=== PATIENT | female | born 1975 ===

== ENCOUNTER → 2021-01-14 08:32 | Outpatient (BNVA) | payer BC, SELFPAY | PROVIDERS: PCP Pediatrics; Referring Provider Pediatrics; Visit Provider Physician Assistant ==

== ENCOUNTER → 2021-01-17 07:33 | Outpatient (BNVA) | payer BC, SELFPAY | PROVIDERS: PCP Pediatrics; Visit Provider Surgery ==

== ENCOUNTER → 2021-01-21 14:54 | Outpatient (BNVA) | payer BC, SELFPAY | PROVIDERS: PCP Pediatrics; Visit Provider Surgery ==

== ENCOUNTER → 2021-02-03 08:06 | Outpatient (BNVA) | payer BC, SELFPAY | PROVIDERS: PCP Pediatrics; Visit Provider Physician Assistant ==

== ENCOUNTER 2021-02-03 08:46 | Outpatient (REF) | payer BC, SELFPAY ==
--- NOTE | ~2021-02-03 | XR_ITS ---
EXAMINATION: XR CHEST CLINICAL INFORMATION: Obesity. COMPARISON: None TECHNIQUE: 2 views of the chest were obtained. FINDINGS: The lungs are clear. The cardiomediastinal silhouette is normal in size. There is no pleural effusion or pneumothorax. No acute osseous abnormality. XR/XR chest 2V IMPRESSION: No acute cardiopulmonary findings.
--- NOTE | 2021-02-03 08:56 | ECG_ITS ---
Test Reason : obesity Blood Pressure : / mmHG Vent. Rate : 074 BPM Atrial Rate : 074 BPM P-R Int : 120 ms QRS Dur : 070 ms QT Int : 394 ms P-R-T Axes : 011 039 008 degrees QTc Int : 437 ms Normal sinus rhythm Low voltage QRS Borderline ECG No previous ECGs available Referred By: Brent Gutierrez Electronically Signed By:TONYA FRAUSTO
[2021-02-03 09:22] LABS: MANUAL DIFF FLAG NO
[2021-02-03 09:26] LABS: Basophils Percent Auto 0.9 % (0-2); Eosinophils Absolute Auto 0.1 X10*3/uL (0.0-0.4); Eosinophils Percent Auto 1.5 % (0-4); Hematocrit 41.3 % (37-47); Hemoglobin 13.3 g/dl (12.0-16.0); Imm Gran Abs Auto 0.01 X10*3/uL (0.00-0.03); Imm Gran Pct Auto 0.2 % (0.0-0.4); Lymphocytes Absolute Auto 1.3 X10*3/uL (1.2-4.9); Lymphocytes Percent Auto 28.4 % (20-40); Mean Corpuscular HGB Conc 32.2 g/dl (31.0-35.0); Mean Corpuscular Hemoglobin 27.2 pg (27.0-33.0); Mean Corpuscular Volume 84.5 fL (80-98); Mean Platelet Volume 9.3 fL (9.4-12.3); Monocytes Absolute Auto 0.4 X10*3/uL (0.1-1.2); Monocytes Percent Auto 8.6 % (2-11); Neutrophils Absolute Auto 2.8 X10*3/uL (2.0-8.3); Neutrophils Percent Auto 60.4 % (45-73); Platelet Count 301 X10*3/uL (160-400); Red Blood Count 4.89 X10*6/uL (4.20-5.50); Red Cell Distribution Width 12.2 % (11.0-16.0); White Blood Count 4.7 X10*3/uL (4.8-10.8)
[2021-02-03 10:02] LABS: Alanine Aminotransferase 17 U/L (0-31); Albumin Level 4.3 g/dL (3.5-5.0); Alkaline Phosphatase 49 U/L (39-117); Anion Gap 14 (12-20); Aspartate Amino Transferase 20 U/L (5-31); Bilirubin Total 0.3 mg/dL (0.0-1.0); Blood Urea Nitrogen 15 mg/dL (9-16); C Reactive Protein 0.61 mg/dL (< or = 0.50); Carbon Dioxide 23 mmol/L (22-29); Chloride 107 mmol/L (96-108); Cholesterol 179 mg/dL; Estimated Glomerular Filt Rate > 60; Glucose Random 96 mg/dL (60-115); HDL Cholesterol 53 mg/dL; Iron 85 mcg/dL (30-160); LDL Cholesterol Calculated 109 mg/dl; Percent Iron Saturation 34 % (15-50); Sodium 140 mmol/L (135-145); Total Iron Binding Capacity 251 mcg/dL (228-428); Total Protein 6.8 g/dL (6.5-8.0); Triglycerides 88 mg/dL; Unsaturated Iron Binding 166 ug/dL
[2021-02-03 10:32] LABS: Ferritin 78 ng/mL (10-250); TSH reflex Free T4 0.92 uIU/mL (0.32-4.0); Vitamin D 25-OH Total 25.8 ng/mL (>30)
[2021-02-03 11:01] LABS: Estimated Average Glucose 111 mg/dL; Hemoglobin A1c % 5.5 %
[2021-02-03 11:43] LABS: Folate 15.9 ng/mL (> or = 4.0); Vitamin B12 741 pg/mL (200-900)
[2021-02-04 11:53] LABS: H Pylori Breath Test Negative (Negative)
[2021-02-04 18:17] LABS: Insulin Level Total 4.3 uIU/mL
[2021-02-04 18:27] LABS: Calcium (PTHI) 9.3 mg/dL (8.6-10.2); PTHI 85 pg/mL (14-64)
[2021-02-06 06:28] LABS: Zinc 89 mcg/dL (60-130)
[2021-02-07 12:16] LABS: Vitamin B1 11 nmol/L (8-30)
[2021-02-09 00:26] LABS: Vitamin A 42 mcg/dL (38-98)
== END 2021-02-03 08:47 | disposition home or self-care (01) ==
LOC: HO.LAB 08:46
PROVIDERS: PCP Pediatrics; Visit Provider Surgery
DX: E66.01 Morbid (severe) obesity due to excess calories (principal)
CPT/HCPCS: 36415; 71046; 80053; 80061; 82306; 82607; 82728; 82746; 83013; 83036; 83525; 83540; 83970; 84425; 84443; 84590; 84630; 85025; 86140; 93005

== ENCOUNTER → 2021-02-14 09:02 | Outpatient (BNVA) | payer BC, SELFPAY | PROVIDERS: PCP Pediatrics; Visit Provider Surgery ==

== ENCOUNTER 2021-02-19 08:06 | Outpatient (REF) | payer BC, OTHER, SELFPAY ==
--- NOTE | ~2021-02-19 | US_ITS ---
EXAMINATION: US COMPLETE ABDOMEN WITH LIVER ELASTOGRAPHY CLINICAL INFORMATION: Obesity COMPARISON: None. TECHNIQUE: Real-time imaging of the abdominal viscera. Noninvasive ultrasound liver fibrosis assessment is performed using Valdemar ElastPQ point quantification shear wave elastography (pSWE) with a C5-2 MHz transducer. Multiple elastography samples are obtained. FINDINGS: PANCREAS: Normal. ABDOMINAL AORTA: The proximal, middle, and distal aortic segments are normal in caliber. INFERIOR VENA CAVA: Visualized portions are normal. LIVER: Normal. The liver demonstrates normal size, contour and echogenicity. No focal lesion or intrahepatic biliary duct dilatation. The right lobe measures 15 cm in length. The left lobe measures 9.5 cm in length. Portal flow is normal/hepatopedal Shear wave liver elastography median stiffness is 1.44 m/s (reference: normal median stiffness is 1.3 m/s or less). IQR/median stiffness to assess sampling precision is 0.23 (reference: good quality data set is IQR/median stiffness of 0.15 or less). GALLBLADDER: Normal. The gallbladder is physiologically distended without evidence of stones, sludge, polyps, wall thickening or pericholecystic fluid. COMMON BILE DUCT: Normal in caliber measuring 0.3 cm in diameter. RIGHT KIDNEY: Normal. No hydronephrosis. No renal calculi or focal parenchymal lesions. The kidney measures 10.6 cm in maximum dimension. LEFT KIDNEY: Normal. No hydronephrosis. No renal calculi or focal parenchymal lesions. The kidney measures 10.5 cm in maximum dimension. SPLEEN: Normal. The spleen measures 9.1 cm in maximum dimension. FREE FLUID: None. US/US abdomen comp w elastography IMPRESSION: 1. Impression: Normal abdominal ultrasound. 2. Liver elastography: Slightly limited due to sampling error. In the absence of other known clinical signs, rules out compensated advanced chronic liver disease. REFERENCE: Society of Radiologists in Ultrasound Liver Stiffness Thresholds (2020): LIVER STIFFNESS THRESHOLDS: *Liver Stiffness equal or less than 1.3 m/s: High probability of being normal. *Liver Stiffness less than 1.7 m/s: In the absence of other known clinical signs, rules out compensated advanced chronic liver disease. *Liver Stiffness 1.7-2.1 m/s: Suggestive of compensated advanced chronic liver disease but need further test for confirmation. *Liver Stiffness over 2.1 m/s: Rules in compensated advanced chronic liver disease. *Liver Stiffness over 2.4 m/s: Suggestive of clinically significant portal hypertension. QUALITY OF DATA SET: *IQR/Median value equal or less than 0.15 implies a quality data set. *IQR/Median value over 0.15 implies a poor quality data set. SIGNIFICANT CHANGE FROM PRIOR EXAM: Significant change if liver stiffness measurement is 10% or greater from prior exam. OTHER CONSIDERATIONS: The stage of liver fibrosis may be overestimated in the setting of acute hepatitis, liver inflammation, elevated liver function tests, hepatic vascular congestion, obstructive cholestasis, non-fasting state, and infiltrative diseases such as amyloidosis and lymphoma. In some patients with NAFLD, the liver stiffness thresholds for compensated advanced chronic liver disease may be lower. In causes other than viral hepatitis and NAFLD, liver stiffness thresholds are not well established.
== END 2021-02-19 08:07 | disposition home or self-care (01) ==
LOC: HO.US 08:06
PROVIDERS: PCP Pediatrics; Visit Provider Surgery
DX: Z01.818 Encounter for other preprocedural examination (principal); E66.9 Obesity, unspecified; K21.9 Gastro-esophageal reflux disease without esophagitis
CPT/HCPCS: 76705; 76981

== ENCOUNTER → 2021-02-20 08:03 | Outpatient (BNVA) | payer BC, SELFPAY | PROVIDERS: PCP Pediatrics; Visit Provider Dietitian, Registered | DX: E66.01 Morbid (severe) obesity due to excess calories (principal); Z68.39 Body mass index [BMI] 39.0-39.9, adult | CPT/HCPCS: 97802 ==

== ENCOUNTER → 2021-03-14 08:15 | Outpatient (BNVA) | payer BC, SELFPAY | PROVIDERS: PCP Pediatrics; Visit Provider Surgery ==

== ENCOUNTER → 2021-04-04 08:10 | Outpatient (BNVA) | payer BC, SELFPAY | PROVIDERS: PCP Pediatrics; Visit Provider Surgery ==

== ENCOUNTER 2021-04-17 10:55 | Outpatient (REF) | payer BC, SELFPAY ==
--- NOTE | ~2021-04-17 | FL_ITS ---
EXAMINATION: FL UPPER GI AIR-CONTRAST STUDY CLINICAL INFORMATION: Morbid/severe obesity due to excess calories. COMPARISON: None TECHNIQUE: Routine upper GI air-contrast study was performed. FINDINGS: Following oral administration of thick barium and effervescent granules, there is normal propagation of bolus from the oral cavity through the pharynx, esophagus into the stomach without any evidence of obstruction, narrowing or stricture. On placing patient supine and prone, the course, caliber and peristalsis of the stomach, duodenal bulb and the sweep are normal. The mucosal pattern of the stomach and the duodenum is normal. There is no gastroesophageal reflux or hiatal hernia. FLUOROSCOPY TIME: 1.3 minutes DOSE AREA PRODUCT: 23.224 uGy-m2 (microgray-meter squared) FL/FL upper GI series IMPRESSION: Unremarkable upper GI air-contrast study.
== END 2021-04-17 10:56 | disposition home or self-care (01) ==
LOC: HO.XRAY 10:55
PROVIDERS: PCP Pediatrics; Visit Provider Surgery
DX: E66.01 Morbid (severe) obesity due to excess calories (principal)
CPT/HCPCS: 74240

== ENCOUNTER → 2021-04-18 07:11 | Outpatient (BNVA) | payer BC, SELFPAY | PROVIDERS: PCP Pediatrics; Visit Provider Surgery ==

== ENCOUNTER 2021-04-24 16:16 | Inpatient (IN) | payer BC, SELFPAY ==
[2021-04-16 14:55] VITALS: BMI 37.3
[2021-04-18 09:38] LABS: MANUAL DIFF FLAG NO
[2021-04-18 09:59] LABS: Basophils Percent Auto 0.5 % (0-2); Eosinophils Percent Auto 0.7 % (0-4); Hematocrit 42.8 % (37.0-47.0); Hemoglobin 13.3 g/dl (12.0-16.0); Imm Gran Abs Auto 0.01 X10*3/uL (0.00-0.03); Imm Gran Pct Auto 0.2 % (0.0-0.4); Lymphocytes Absolute Auto 1.5 X10*3/uL (1.2-4.9); Lymphocytes Percent Auto 25.1 % (20-40); Mean Corpuscular HGB Conc 31.1 g/dl (31.0-35.0); Mean Corpuscular Hemoglobin 27.1 pg (27.0-33.0); Mean Corpuscular Volume 87.3 fL (80.0-98.0); Mean Platelet Volume 9.1 fL (9.4-12.3); Monocytes Absolute Auto 0.6 X10*3/uL (0.1-1.2); Monocytes Percent Auto 10.1 % (2-11); Neutrophils Absolute Auto 3.7 x10*3/uL (2.0-8.3); Neutrophils Percent Auto 63.4 % (45-73); Platelet Count 291 X10*3/uL (160-400); Red Cell Distribution Width 12.6 % (11.0-16.0); White Blood Count 5.8 X10*3/uL (4.8-10.8)
[2021-04-18 10:05] LABS: Prothrombin Time 10.9 SEC (9.9-13.0)
[2021-04-18 10:07] LABS: Partial Thromboplastin Time 35.1 SEC (24.1-38.0)
[2021-04-18 10:10] LABS: Estimated Average Glucose 111 mg/dL; Hemoglobin A1C 127.4394 umol/L; Hemoglobin A1c % 5.5 %
[2021-04-18 10:31] LABS: Alanine Aminotransferase 12 U/L (0-31); Albumin Level 4.3 g/dL (3.5-5.0); Alkaline Phosphatase 50 U/L (39-117); Anion Gap 11 (12-20); Aspartate Amino Transferase 16 U/L (5-31); Bilirubin Total 0.3 mg/dL (0.0-1.0); Blood Urea Nitrogen 11 mg/dL (9-16); C Reactive Protein 0.24 mg/dL (< or = 0.50); Calcium 9.2 mg/dL (8.4-10.2); Carbon Dioxide 28 mmol/L (22-29); Chloride 109 mmol/L (96-108); Cholesterol 202 mg/dL; Creatinine Clr Calc Pharmacy 119.8; Estimated Glomerular Filt Rate > 60; Glucose Random 105 mg/dL (60-115); HDL Cholesterol 49 mg/dL; LDL Cholesterol Calculated 141 mg/dl; Potassium 4.8 mmol/L (3.3-5.1); Sodium 143 mmol/L (135-145); Total Protein 6.9 g/dL (6.5-8.0); Triglycerides 61 mg/dL
[2021-04-18 10:56] LABS: TSH reflex Free T4 1.27 uIU/mL (0.32-4.0)
[2021-04-18 11:16] LABS: Insulin 8 uU/mL (2-29)
--- NOTE | 2021-04-19 19:14 | MHC.SHP ---
Pre-Procedural Eval Section A Date of Service: 04/19/21 The patient is an INPATIENT: Yes The History & Physical has been completed within 30 days and I have reviewed it.: No Section B Chief Complaint: Obesity Relevant Family History (Specify if Yes): Yes Relevant Social History: None Present Medications: None Medical History: No relevant PMH History of Previous Operations: No relevant previous surgery Allergies: Allergies Allergy/AdvReac Type Severity Reaction Status Date / Time No Known Allergies Allergy Verified 04/18/21 07:45 Review of Systems Sugical H&P ROS: Negative: Constitution, Cardiovascular, Respiratory, Neurological, Psychiatric, Hem-Onc, Allergic/Immunologic, Gastrointestinal, Genitourinary, Musculoskeletal, Integumentary, Endocrine and Eyes/Ears/Nose/Throat Exam Surgical H&P Exam: Normal: HEENT, Normal: Heart, Normal: Lungs, Normal: Extremities, Normal: Abdomen, Normal: Skin and Normal: Neurological Plan Diagnosis/Plan: Unchanged I have reviewed the history and physical and performed a pertinent physical examination on my patient. No changes have occurred unless specified.
--- NOTE | 2021-04-23 09:35 | P.CONAN_ITS ---
Documented by User: Marialuisa Johnson NP 04/23/21 09:52 HPI - Anesthesia Eval Consult details Narrative: 45yo F for Gastrectomy Sleeve, EGD, Poss Diaphragmatic Hernia, Poss Ventral Hernia, Poss open PMFSH Active Problems Active Problems: All Active Problems (Updated 04/16/21 @ 14:54 by Paty Henriquez RN) Adjustment disorder, unspecified (Acute) Vitamin D deficiency (Acute) Obesity (Acute) BMI 38.0-38.9,adult (Acute) BMI 37.0-37.9, adult (Acute) Back pain (Acute) Morbid obesity (Acute) Past Medical History Medical History Back pain Morbid obesity Family History Family History (Updated 01/16/21 @ 14:25 by SHAHRIAR Neal) Mother Lung cancer Father No problems noted. Daughter No problems noted. Daughter No problems noted. Surgical History Surgical History History of tonsillectomy Social History Social History (Updated 01/16/21 @ 14:26 by SHAHRIAR Neal) Are you a primary ocular care technologist to a significant other at home: No Do you presently have visiting nurse or other home services: No Alcohol intake: current Alcohol intake frequency: a few times a week Patient Tobacco Use Status: Former Tobacco user Meds Allergies Allergy/AdvReac Type Severity Reaction Status Date / Time No Known Allergies Allergy Verified 04/24/21 11:40 Exam Exam Date and Time: April 23, 2021 0935 Height,Weight and Vital Signs: Height 5 ft 9 in Weight 114.759 kg Pertinent Lab Results Pertinent Lab Results: Laboratory Tests 04/18/21 04/18/21 04/18/21 09:35 09:35 09:35 WBC 5.8 RBC 4.90 Hgb 13.3 Hct 42.8 MCV 87.3 MCH 27.1 MCHC 31.1 RDW 12.6 Plt Count 291 MPV 9.1 L Immature Gran % (Auto) 0.2 Neut % (Auto) 63.4 Lymph % (Auto) 25.1 [place] % (Auto) 10.1 Eos % (Auto) 0.7 Baso % (Auto) 0.5 Lymph # (Auto) 1.5 [place] # (Auto) 0.6 Eos # (Auto) 0.0 Baso # (Auto) 0.0 Abs Immat Gran (auto) 0.01 Absolute Neuts (auto) 3.7 Absolute Nucleated RBC 0.000 Nucleated RBC % (auto) 0.0 PT 10.9 INR 1.0 APTT 35.1 Sodium 143 Potassium 4.8 Chloride 109 H Carbon Dioxide 28 Anion Gap 11 L BUN 11 Creatinine 0.81 Estim Creat Clear Calc 119.8 Estimated GFR > 60 Random Glucose 105 Estimat Average Glucose Hemoglobin A1c % Insulin Level 8 Calcium 9.2 Total Bilirubin 0.3 AST 16 ALT 12 Alkaline Phosphatase 50 C-Reactive Protein 0.24 Total Protein 6.9 Albumin 4.3 Triglycerides 61 Cholesterol 202 LDL Cholesterol, Calc 141 HDL Cholesterol 49 TSH 1.27 Blood Type Antibody Screen 04/18/21 04/18/21 09:35 09:35 WBC RBC Hgb Hct MCV MCH MCHC RDW Plt Count MPV Immature Gran % (Auto) Neut % (Auto) Lymph % (Auto) [place] % (Auto) Eos % (Auto) Baso % (Auto) Lymph # (Auto) [place] # (Auto) Eos # (Auto) Baso # (Auto) Abs Immat Gran (auto) Absolute Neuts (auto) Absolute Nucleated RBC Nucleated RBC % (auto) PT INR APTT Sodium Potassium Chloride Carbon Dioxide Anion Gap BUN Creatinine Estim Creat Clear Calc Estimated GFR Random Glucose Estimat Average Glucose 111 Hemoglobin A1c % 5.5 Insulin Level Calcium Total Bilirubin AST ALT Alkaline Phosphatase C-Reactive Protein Total Protein Albumin Triglycerides Cholesterol LDL Cholesterol, Calc HDL Cholesterol TSH Blood Type O Positive Antibody Screen NEGATIVE Narrative Narrative: EKG 01/2021 Vent. Rate : 074 BPM ? ? Atrial Rate : 074 BPM ?? P-R Int : 120 ms? QRS Dur : 070 ms ? ? QT Int : 394 ms ? ? ? P-R-T Axes : 011 039 008 degrees ?? QTc Int : 437 ms ? Normal sinus rhythm Low voltage QRS Borderline ECG No previous ECGs available Assessment and Plan Assessment Anesthesia Assessment: Chart Reviewed Documented by User: Abner Saha 04/24/21 12:38 PMFSH Past Medical History Medical History Back pain Morbid obesity Functional capacity: independent ambulation Family History Family History (Updated 01/16/21 @ 14:25 by SHAHRIAR Neal) Mother Lung cancer Father No problems noted. Daughter No problems noted. Daughter No problems noted. Family history of problems with anesthesia: No Surgical History Surgical History History of tonsillectomy History of Problems with Anesthesia: No Social History Social History (Updated 01/16/21 @ 14:26 by SHAHRIAR Neal) Are you a primary ocular care technologist to a significant other at home: No Do you presently have visiting nurse or other home services: No Alcohol intake: current Alcohol intake frequency: a few times a week Patient Tobacco Use Status: Former Tobacco user Meds Allergies Allergy/AdvReac Type Severity Reaction Status Date / Time No Known Allergies Allergy Verified 04/24/21 11:40 Exam Airway Mallampati Class: II TM Dist: >3cm Neck ROM: Full Loose/Missing/Broken Teeth: No Heart: rrr Lungs: bl breath sounds Assessment and Plan Final Anesthetic Review Family History of Problems with Anesthesia: No History of Problems with Anesthesia: No NPO: Yes ASA Class: III Final Preanesthetic Review: Meds/Allgs Chart Reviewed Patient Risk: Intermediate Procedure Risk: Intermediate Anesthetic Plan Anesthetic Plan: GA Disposition: Standard PACU
[2021-04-24] VITALS (9 sets, daily range): BP systolic 102–139; BP diastolic 61–90; PULSE 61–95; RESP 12–18; TEMP 36.3–37; O2SAT 96–100
[2021-04-24 12:01] LABS: UPreg QC Valid YES; Urine Pregnancy NEGATIVE (NEGATIVE)
[2021-04-24 12:11] LABS: COVID-19 Test Negative (Negative)
[2021-04-24] MEDS: Lactated Ringers 1,000 ML 100 ML IVCONT ×2 (12:19→17:03)
[2021-04-24] MEDS: Lactated Ringers 1,000 ML 999 ML IV (12:19)
--- NOTE | 2021-04-24 14:10 | PM.PNGS ---
Subjective Subjective Date of Service: 04/25/21 Interval history: Patient has mild incisional pain, but was able to ambulate and use the incentive spirometer. Had significant nausea and vomiting overnight. Physical Exam Vital Signs: Vital Signs: Last Vital Signs Temp 98.6 F 04/24/21 12:03 Pulse 90 04/24/21 12:03 Resp 16 04/24/21 12:03 BP 102/64 04/24/21 12:03 Pulse Ox 96 04/24/21 12:03 BMI result Body Mass Index 37.3 GI: Inspection: Yes normal to inspection, Yes incision (clean, dry and intact) and Yes obesity Extrem: Right lower extremity: normal to inspection (no calf tenderness) Left lower extremity: normal to inspection (no calf tenderness) Objective Data Active Medications Lactated Ringer's (Lr) 1,000 mls @ 100 mls/hr IVCONT .Q10H [facility] Last Admin: 04/24/21 12:19 Dose: 100 mls/hr Documented by: QUIN Labs CBC & Chem 7: 04/25/21 05:24 04/25/21 06:52 Labs: Laboratory Results - last 24 hr 04/24/21 04/24/21 11:40 11:45 Urine Test NEGATIVE COVID-19 ([facility]) Negative COVID-19 Clin Com See Note Procedures Date of Service Date of Service: 04/25/21 Progress Note: A&P Assessment and plan (1) Liver fibrosis: Status: Acute (2) S/P laparoscopic sleeve gastrectomy: Status: Acute Assessment and Plan: 1. Continue NPO and IV fluids 2. Try IV Phenergan Fall Risk Details Current Medications: Current Medications Lactated Ringer's (Lr) 1,000 mls @ 100 mls/hr IVCONT .Q10H [facility] Last Admin: 04/24/21 12:19 Dose: 100 mls/hr Documented by: Time Spent With Patient Time: Total time spent is greater than 50% in coordination of care (as documented) at patient's floor/unit and/or counseling patient: Time with patient: less than 15 minutes Quality Stroke Does the patient have a stroke diagnosis?: No VTE Prior VTE?: No VTE Risk Level:: Surgical - moderate VTE Device Contraindication: N/A - Device Ordered VTE Drug Contraindication: Treatment Not Indicated
--- NOTE | 2021-04-24 14:12 | PM.OP ---
Brief Operative Note Date of Service: 04/24/21 Pre-op diagnosis: Severe obesity and comorbidities (see below) Post-op diagnosis: same Procedure: INITIAL PATIENT BMI ON PRESENTATION AT OUR OFFICE: 41.3 kg/m2 LAST BMI BEFORE SURGERY: 38.2 kg/m2 COMORBIDITIES: back pain, liver steatosis The patient participated in an intensive weekly lifestyle ?intervention and exercise program during which the patient ?has lost between the initial office visit and the last preoperative visit 29.6lbs, or 10.47% of initial actual body weight. The patient met the BMI-criteria for bariatric surgery based on the BMI on initial presentation. The patient should not be penalized for achieving such weight loss because ?it is not sustainable long-term without surgical intervention and it was achieved in preparation for bariatric surgery ?under my direction and based on my published research ([email or web address]) ?that a 10% preoperative weight loss improves long-term weight loss after surgery and reduces perioperative complications.? Insurance carriers such as [facility] have endorsed my recommendations ?and have included in their policies criteria to include a 10% preoperative weight loss requirement. PROCEDURE: Esophago-gastroscopy, laparoscopic repair of incarcerated diaphragmatic hernia, laparoscopic lysis of adhesions, laparoscopic sleeve gastrectomy and laparoscopic gastropexy INDICATIONS: This is a 45 year-old female who was electively scheduled for laparoscopic, possibly open sleeve gastrectomy. The risks and complications of the procedure were discussed with the patient in advance, particularly the possibility of ; pulmonary embolism; staple line leak; bleeding; GERD; cardiac, pulmonary, or renal complications; as well as long-term problems such as insufficient weight loss, vitamin deficiency, strictures, or ulcers. The patient understood all the risks, and was in agreement to proceed with surgery. DESCRIPTION OF PROCEDURE: After informed consent was obtained from the patient, the patient was given preoperative antibiotics, and was transferred to the operating room. After successful induction of general anesthesia, pneumatic compressive devices were placed on both lower extremities. An upper endoscopy was performed next. The oropharynx and esophagus appeared to be within normal limits. There was a diaphragmatic hernia present of moderate size consistent with the findings of the preoperative upper GI. The stomach was entered. Then after all fluid and air were suctioned and the stomach was fully decompressed, the scope was withdrawn and secured in the mid esophagus. The patient was then prepped and draped in the usual sterile manner, and abdominal access was established at the right upper quadrant with the Myrna technique. A 12 mm blunt port was inserted, and the abdomen was insufflated with CO2 to a pressure of 15 mmHg. Under direct visualization, additional ports were placed, specifically two 5 mm Versi-step ports to the left upper quadrant, and a 5 mm Versi-Step port to the right upper quadrant. 1% lidocaine plain was used to infiltrate all port sites as well as all fascia defects. Following that, the patient was placed in a steep reverse Trendelenburg position. An additional 5 mm port was placed to the right flank for the Mediflex retractor that was used to retract the left lobe of the liver. The gastro-esophageal fat pad was opened with the ultrasonic device (Thunderbeat, Olympus) and the anterior esophagus and hiatus were exposed. The angle of His was opened with the ultrasonic device the fundus of the stomach from any diaphragmatic and splenic attachments. I then opened the gastrocolic ligament between the transverse colon and the greater curvature of the stomach with the ultrasonic device to enter the lesser sac and facilitate the ligation of the short gastric vessels. I started at a mid-point along the greater curvature and using the Thunderbeat, all short gastric vessels were divided all the way to the angle of His until the left basia was completely dissected at its entirety. I then divided the gastro-colic ligament distally to a distance of about 3-4 cm proximal to the esophagus. The stomach was then divided transversely with one Endo HEMALATHA-45 purple, two HEMALATHA-45 orange and three HEMALATHA-60 articulating orange loads using the AEON stapler and loads. Every effort was made that the gastric sleeve had a tubular shape and an even caliber throughout. Once the sleeve resection was completed, the staple line of the gastric sleeve was reinforced with Hemoclips. The resected stomach was retrieved without difficulty from the Myrna port. A gastropexy was then performed in order to prevent postoperative GERD and partial gastric volvulus. Several interrupted 2.0 Surgidac sutures were placed between the sleeve's staple line and the previously divided greater omentum and gastro-colic ligament using the Endo-Stitch device. ?An upper endoscopy was performed. There was no narrowing at the GE junction. The scope was easily advanced all the way to the pylorus which was clearly visualized. There was no narrowing anywhere and the sleeve's caliber was even throughout. The sleeve's staple line was inspected and there was no evidence of ischemia, bleeding or dehiscence. At that point the gastroscope was withdrawn from the patient?s mouth while we were decompressing the bowel and the stomach from any remaining air. I looked into the lesser sac to see how the sleeve was situating and it was situating well. There was no bleeding from the staple line, spleen, or short gastric vessels. The Mediflex retractor was removed, and the undersurface of the liver was inspected and there was no bleeding. The patient was placed in supine position. I closed the fascial defect of the 12 mm port site with a figure of eight #1 Polysorb suture. Then 100 cc 0.25 % Marcaine plain with 10 mg of Dexamethasone were used to infiltrate the fascial closure as well as all skin incisions. At this point, the abdomen was deflated, all ports were removed under direct vision, and no bleeding was noted from any of the port sites. The skin incisions were irrigated with saline and were closed with 4-0 absorbable monofilament sutures. Steri-Strips and OpSites were used to cover all incisions. The patient was extubated and was transferred in stable condition to the recovery room for further care. I was present and performed all mejia parts of the procedure. Ms. Guptason was the judicial assistant. There were no residents to assist with this case. Gray Gutierrez MD, PhD, FACS Surgeon: Brent Gutierrez MD Anesthesia: GETA, local and other (TAP block) Was an Executive Secretary Social Welfare used for this Procedure?: No Executive Secretary Social Welfare: Arely Hanna Estimated blood loss (mL): 10 Urine output (mL): 0 (No Bernstein to record) Pathology: other (Stomach) Condition: stable Disposition: PACU
--- NOTE | 2021-04-24 16:19 | P.DS_ITS ---
DS: Providers Provider Date of Service: 04/25/21 Primary care physician: Stacie Tong MD DS: Diagnosis Discharge Diagnosis (1) Obesity: (2) BMI 38.0-38.9,adult: (3) Back pain: (4) Liver fibrosis: Status: Acute DS: Summary Hospital Course Hospital Course: ADMITTING DIAGNOSIS: morbid obesity DISCHARGE DIAGNOSIS: same, s/p laparoscopic sleeve gastrectomy PAST SURGICAL HISTORY: none PROCEDURE: upper endoscopy, laparoscopic sleeve gastrectomy DISCHARGE SUMMARY: History of Present Illness: The patient is a 45 year-old woman with a BMI of 41.3 kg/m2 and associated co- morbidities as described above. The patient had extensive work-up,lost 27.4 lbs preoperatively and was electively scheduled for laparoscopic, possible open sleeve gastrectomy and gastropexy. Risks and complications of the surgery were discussed with the patient in advance, particularly the possibility of , pulmonary embolism, anastomotic leak, bleeding, bowel injury, GERD, cardiac, renal or pulmonary complications. The patient understood all the risks and was in agreement with the surgical plan. Hospital Course: The patient underwent an uneventful laparoscopic sleeve gastrectomy with gastropexy on the day of admission. Postoperatively, the patient was transferred to the surgical floor. The patient received IV Acetaminophen and IV dilaudid for pain control. Patient was started on bariatric phase 1 diet POD #0. On postoperative day one, the patient was feeling well without nausea, vomiting, fevers, or tachycardia. The patient had some mild incisional pain and the abdomen was soft. On the morning of postoperative day one, the patient was continued on 1 ounce of water or ice every half hour. During the day, the patient did fairly well, having some incisional pain, but able to ambulate adequately and to tolerate liquids well. Since the patient is doing well, we decided that the patient was ready to be discharged. The patient was given instructions to follow-up with me next week and to call my office for any fever over 101, persistent abdominal pain, nausea, vomiting, GERD, symptoms of DVT such as calf tenderness, or leg swelling, or pulmonary embolism such as chest pain or shortness of breath. The patient was also instructed to drink 40-60 ounces of liquids per day using the 1-ounce cups. The patient had been given prescriptions for Tylenol for pain, Zofran prn for nausea, and pantoprazole and carafate previously. The patient was encouraged to ambulate and use the incentive spirometer. The patient was allowed to shower, but no baths, and encouraged to stay active at home. All of these instructions were given to the patient personally. All questions were answered and the patient understood all instructions, the instructions were also given to the patient in print. Time Spent with Patient Time attestation: Total time spent providing and/or coordinating discharge services: Discharge coordination time: Less than 30 minutes Quality: Stroke Does the patient have a stroke diagnosis?: No Physical Exam Vital Signs: Vital Signs: Last Vital Signs Temp 98.6 F 04/24/21 12:03 Pulse 90 04/24/21 12:03 Resp 16 04/24/21 12:03 BP 102/64 04/24/21 12:03 Pulse Ox 96 04/24/21 12:03 BMI result Body Mass Index 37.3 DS: Data Data Completed and Pending Labs on day of discharge: Laboratory Results - last 24 hr 04/24/21 04/24/21 11:40 11:45 Urine Test NEGATIVE COVID-19 ([facility]IA) Negative COVID-19 Clin Com See Note Discharge Plan Discharge Patient Disposition: Home, Self-Care Discharge Diagnosis: s/p sleeve gastrectomy Referrals: Stacie Tong MD [Primary Care Provider] - 1 Week Discharge Medications: Continued pantoprazole 40 mg tablet,delayed release (DR/EC) 40 mg PO DAILY Qty: 30 RF: 2 ondansetron HCl [Zofran] 4 mg tablet 4 mg PO Q12H Qty: 20 RF: 0 sucralfate 1 gram tablet 1 g PO BID Qty: 60 RF: 2 Discontinued cholecalciferol (vitamin D3) 125 mcg (5,000 unit) capsule 125 mcg PO DAILY Qty: 30 RF: 2 polyethylene glycol 3350 [Miralax] 17 gram powder in packet 17 g PO DAILY Qty: 14 RF: 0 Diet: other Activity on Discharge: No heavy lifting Stand Alone Forms: Patient Portal Discharge page Care Plan Goals: weight loss Health Concerns: morbid obesity Plan of Treatment: No tub baths, sex or returning to work until discussed at first post op appointment. No exercise, alcohol, tobacco or illegal drug use. Continue to use incentive spirometer hourly while awake. Walk in home for 5- 10 minutes every 2 hours during the first week. Continue phase 1 diet today and start phase 2 diet tomorrow morning. Follow all instructions in the bariatric handbook and call with any questions. 1. Please call your doctor or come back to the emergency room should any new symptoms arise. 2. You will receive a courtesy call from [facility] 24-48 hours after discharge. 3. Activity: abstain from alcohol, practice limited stair climbing, no bending, no driving, no exercise, no illicit substances, no lifting, no sex, no tub bath, no work. 4. Diet: continue as discussed with Dr. Gutierrez. 5. Dressing Change/Wound Care: Do not change or remove surgical dressings unless they are wet or soiled. 6. Call your doctor if: - Your temperature exceeds 101.5 F - You experience excessive pain or swelling - You have an unexpected reaction to medication - You have excessive bleeding - You experience continued vomiting/nausea - Your incision begins to separate - Your incision shows signs of infection such as increased redness, swelling, excessive pain, heat, or drainage (light blood or clear fluid is normal) 7. General instructions: No lifting greater than 5 lbs for the next 4 weeks[address] driving within 24 hours of taking narcotic pain medications. If you do not move your bowels in the next 2 days, please take milk of magnesia over the counter. Please follow the post op diet and do not advance your diet until you are seen in the office in about 2 weeks. Please walk around your home every hour or two to prevent blood clots from forming in your legs. You do not need to wake from sleeping to walk. Please sleep in a bed or couch to prevent kinking at the hips and knees. Please take your incentive spirometer (your lung administrative office manager) home with you and use it for the next few days to prevent pneumonias. You may shower, no hot tubs, baths or swimming pools. Please call the office with any questions or concerns such as increasing abdominal pain, fever, chills, shortness of breath, chest pain, leg pain or swelling, or redness or drainage from your incisions. Do not hesitate to contact the office with any questions at . The patient's medical history has been reviewed and they are considered low risk for post op DVT and therefore DVT prophylaxis is not considered necessary. Travel after surgery was reviewed. The patient has not disclosed any travel plans during the first 30 days after surgery and they have been advised that within the first 30 days after surgery any bus, plane, train or car travel over 2 hours in duration is contraindicated due to the possibility of developing blood clots from immobility. Any travel, needs to include periods of ambulation of 10 minutes in duration every 2 hours. The patient was instructed to discuss any plans for travel during this period with their bariatric surgeon. Assessment: stable, post op sleeve gastrectomy
[2021-04-24] MEDS: Famotidine/PF 20 MG/2 ML VIAL IVPUSH ×2 (16:44→21:09)
[2021-04-24 16:49] LABS: Hematocrit 37.7 % (37.0-47.0); Hemoglobin 11.9 g/dl (12.0-16.0)
[2021-04-24 17:03] LABS: Anion Gap 17 (12-20); Blood Urea Nitrogen 6 mg/dL (9-16); Calcium 8.3 mg/dL (8.4-10.2); Carbon Dioxide 21 mmol/L (22-29); Chloride 104 mmol/L (96-108); Creatinine Clr Calc Pharmacy 112.8; Estimated Glomerular Filt Rate > 60; Glucose Random 207 mg/dL (60-115); Sodium 138 mmol/L (135-145)
[2021-04-24] MEDS: 0.9 % Sodium Chloride Flush 3 ML SYRINGE IVFLUSH (19:54)
[2021-04-24] MEDS: Metoclopramide HCl 10 MG/2 ML VIAL IVPUSH (19:54)
[2021-04-24] MEDS: ceFAZolin Sodium/Dextrose,Iso 2 GM/50 ML PIGGYBACK IV (19:55)
[2021-04-24] MEDS: ondansetron HCL 4 MG/2 ML VIAL IVPUSH (21:54)
[2021-04-25] MEDS: Lactated Ringers 1,000 ML 100 ML IVCONT ×2 (02:35→11:39)
[2021-04-25 03:50] VITALS: BP 121/65; PULSE 68; RESP 17; TEMP 36.8; O2SAT 100
[2021-04-25] MEDS: ondansetron HCL 4 MG/2 ML VIAL IVPUSH ×2 (05:01→14:35)
[2021-04-25 05:49] LABS: Basophils Percent Auto 0.1 % (0-2); Hematocrit 41.2 % (37.0-47.0); Hemoglobin 12.8 g/dl (12.0-16.0); Imm Gran Abs Auto 0.03 X10*3/uL (0.00-0.03); Imm Gran Pct Auto 0.3 % (0.0-0.4); Lymphocytes Absolute Auto 0.4 X10*3/uL (1.2-4.9); Lymphocytes Percent Auto 4.5 % (20-40); MANUAL DIFF FLAG SCAN; Mean Corpuscular HGB Conc 31.1 g/dl (31.0-35.0); Mean Corpuscular Hemoglobin 27.3 pg (27.0-33.0); Mean Corpuscular Volume 87.8 fL (80.0-98.0); Mean Platelet Volume 9.7 fL (9.4-12.3); Monocytes Absolute Auto 0.3 X10*3/uL (0.1-1.2); Monocytes Percent Auto 3.2 % (2-11); Neutrophils Absolute Auto 9.1 x10*3/uL (2.0-8.3); Neutrophils Percent Auto 91.9 % (45-73); Platelet Count 289 X10*3/uL (160-400); Red Blood Count 4.69 X10*6/uL (4.20-5.50); SCAN SMEAR FLAG 1; White Blood Count 9.9 X10*3/uL (4.8-10.8)
[2021-04-25 06:20] LABS: SLIDE REVIEW VERIFIED
--- NOTE | 2021-04-25 06:48 | PC.NURSE ---
pt vomited several times overnight, small amounts each time, unable to tolerate much water d/t nausea, pt received scheduled zofran and one dose of PRN reglan, but refused any other doses of reglan.
[2021-04-25 07:00] VITALS: BP 109/54; PULSE 71; RESP 16; TEMP 37; O2SAT 100
[2021-04-25 07:36] LABS: Anion Gap 17 (12-20); Blood Urea Nitrogen 4 mg/dL (9-16); Calcium 9.3 mg/dL (8.4-10.2); Carbon Dioxide 18 mmol/L (22-29); Chloride 104 mmol/L (96-108); Creatinine Clr Calc Pharmacy 121.3; Estimated Glomerular Filt Rate > 60; Glucose Random 123 mg/dL (60-115); Potassium 4.6 mmol/L (3.3-5.1); Sodium 134 mmol/L (135-145)
[2021-04-25] MEDS: Famotidine/PF 20 MG/2 ML VIAL IVPUSH (08:49)
--- NOTE | 2021-04-25 09:03 | MHC.CM.PN ---
EMR REVIEWED, PT S/P LAP SLEEVE GASTRECTOMY, HERNIA REPAIR AND LYSIS OF ADHESIONS, PT IS A&OX3, PT WORKS, IS INDEPENDENT W/ALL CARE, NO DME AND NO HOME SERVICES, PT VERIFIES PCP IS SERENE CORONEL AND HAS COMPLETED A HCP W/CM NAMING HER MOTHER JUDI ESCOBAR [phone], PT PROVIDED W/EDUCATIONAL INFO, ORIGINAL AND 2 COPIES, COPY UPLOADED TO [facility] AND PLACED IN CHART. D/C PLAN: HOME LATER TODAY HOME SELF-CARE, FAMILY FOR TRANSPORT
[2021-04-25 11:18] VITALS: BP 140/61; PULSE 68; RESP 16; TEMP 36.6; O2SAT 100
--- NOTE | 2021-04-25 15:38 | HO.POSTANES ---
Post Anesthesia Evaluation Post Anesthesia Evaluation Vital Signs: Vital Signs Temp Pulse Resp BP Pulse Ox 04/25/21 11:18 97.8 F 68 16 140/61 H 100 04/25/21 07:00 98.6 F 71 16 109/54 L 100 04/25/21 03:50 98.3 F 68 17 121/65 100 Anesthesia: General Endotracheal-GETA Mental Status: Awake Pain Control: Satisfactory Nausea/Vomiting: Severe (N&V all night. None for last few hours. For possible discharge later today) Hydration: Adequate Anesthesia-Related Issues: No Anes. Related Issues
== END 2021-04-25 16:46 | disposition home or self-care (01) | DRG 403 ==
LOC: HO.SSSA 16:22 → HO.S3 16:37
PROVIDERS: Nurse Practitioner; Physician Assistant; Admitting Provider Surgery; PCP Pediatrics; Visit Provider Surgery
PROC: 0DB64Z3 Excision of Stomach, Percutaneous Endoscopic Approach, Vertical (ICD-10-PCS; CPT 43845; principal; 2021-04-24 12:50)
DX: E66.01 Morbid (severe) obesity due to excess calories (principal); K44.0 Diaphragmatic hernia with obstruction, without gangrene; K74.00 Hepatic fibrosis, unspecified; K76.0 Fatty (change of) liver, not elsewhere classified; M54.9 Dorsalgia, unspecified; Z20.822 Contact with and (suspected) exposure to COVID-19; Z68.38 Body mass index [BMI] 38.0-38.9, adult
CPT/HCPCS: 36415; 80048; 80053; 80061; 81025; 83036; 83525; 84443; 85014; 85018; 85025; 85610; 85730; 86140; 86850; 86900; 86901; 87635; 88307; 88342; 99024; A4649; J0131; J0690; J1100; J1170; J2250; J2405; J2550; J2765; J3010

== ENCOUNTER 2021-04-28 08:42 | Emergency (ER) | payer BC, SELFPAY ==
--- NOTE | ~2021-04-28 | CT_ITS ---
EXAMINATION: CT ABDOMEN AND PELVIS WITH CONTRAST CLINICAL INFORMATION: Postop, decreased by mouth intake and nausea COMPARISON: None TECHNIQUE: Multidetector volumetric images were obtained from the superior aspect of the liver through the pubic symphysis following administration 85 mL of Omnipaque 350 intravenous contrast. Sagittal and coronal reformatted images were obtained on the technologist's workstation. Oral contrast: No This CT examination was performed using dose optimization techniques as appropriate, variously including the following: *Automated exposure control *Adjustment of mA and/or kV according to patient size (this includes techniques or standardized protocols for targeted exams where dose is matched to indication/reason for exam; i.e. extremities or head) *Use of iterative reconstruction technique DLP: 912 mGy-cm FINDINGS: LUNG BASES: The lung bases are unremarkable. The heart size is normal. LIVER, GALLBLADDER, AND BILIARY TREE: The liver is normal in size, shape, and attenuation. No focal hepatic lesion or biliary ductal dilatation is present. The gallbladder is unremarkable with no evidence of radiopaque gallstones, gallbladder wall thickening, or obvious pericholecystic inflammatory changes. PANCREAS: Unremarkable. SPLEEN: Unremarkable. ADRENAL GLANDS: Unremarkable. KIDNEYS AND URETERS: The kidneys are normal in size, shape, and attenuation. No hydronephrosis, hydroureter, or calculi seen. No perinephric stranding. BLADDER: Unremarkable. GASTROINTESTINAL TRACT: There is scattered stool and gas seen in the colon without any significant distention. Oral contrast opacified bowel loops are normal caliber. Appendix is normal. There is gastric bypass surgery. No fluid collection or gas seen around the surgical site. No free air or free fluid seen. ABDOMINAL WALL: Postsurgical changes and haziness seen in the upper abdomen. A small hiatal hernia is noted. LYMPH NODES: Normal. VASCULAR: Unremarkable. PELVIC VISCERA: There are bilateral essure devices. OSSEOUS STRUCTURES: There is loss of of disc height with vacuum disc phenomena and spondylosis L5-S1 disc level. CT/CT abdomen pelvis w con IMPRESSION: Postsurgical gastric bypass changes with no fluid collection, free air or abscess seen. Normal appendix. The bowel gas pattern is nonspecific. Small hiatal hernia.
--- NOTE | ~2021-04-28 | FL_ITS ---
EXAMINATION: UPPER GI GASTROGRAFIN STUDY. CLINICAL INFORMATION: Post gastric bypass surgery. COMPARISON: None TECHNIQUE: [place] upright 50 to suggest obstruction GI study is performed FINDINGS: Following oral administration of diluted Gastrografin there is normal perfusion of bolus from the oral cavity through the small stomach following gastric emptying surgery into this duodenum and jejunum without any extravasation. There is no obstruction. No gastroesophageal reflux seen. There is no evidence of hiatal hernia. FL/FL upper GI w gastrografin IMPRESSION: Widely patent gastroesophageal junction with post gastric sleeve surgical changes.
[2021-04-28 09:38] VITALS: BP 126/75; PULSE 80; RESP 16; TEMP 36.8; O2SAT 100; BMI 36.0
--- NOTE | 2021-04-28 10:22 | ED.GENADULT ---
HPI - General Adult General Chief complaint: Nausea/Vomiting/Diarrhea Stated complaint: post op complications from 04/24 Time Seen by Provider: 04/28/21 10:00 Source: patient Mode of arrival: ambulatory Limitations: no limitations History of Present Illness HPI narrative: This is a 45-year-old female pmhx, liver fibrosis, obesity status post laparoscopic sleeve gastrectomy on April 24, [address] Reyes presents to the emergency department with complaints of fatigue, nausea, inability to tolerate p.o.. Patient tells me that she gets nauseous after taking small sips of water, and since she left the hospital she has not been able to drink much, she tells me she immediately feels nauseated and feels like she is going to vomit. She also reports that she has not had a bowel movement since her surgical procedure on the . She denies fevers, chills, nausea, chest pain, shortness of breath, weakness, abdominal pain, difficulties with urination. Onset (ago): day(s) (4) Severity: severe Relieving factors: none Exacerbating factors: none Associated symptoms: loss of appetite, malaise and nausea/vomiting Treatments prior to arrival: none Related Data Previous Rx's Medication Instructions Recorded ondansetron HCl 4 mg tablet 4 mg PO Q12H #20 tab 04/17/21 (Zofran) pantoprazole 40 mg tablet,delayed 40 mg PO DAILY #30 tab 04/17/21 release sucralfate 1 gram tablet 1 g PO BID #60 tab 04/21/21 Allergies Allergy/AdvReac Type Severity Reaction Status Date / Time No Known Allergies Allergy Verified 04/24/21 11:40 Review of Systems Review of Systems: Constitutional : No Weight loss, No Fever, No Chills, + Fatigue, + Malaise ENT/Mouth : No sore throat, No Rhinorrhea Eyes: No Eye Pain, No Swelling, No Redness Cardiovascular : No Chest Pain, No SOB, No Dyspnea on Exertion, No Orthopnea, No Edema, No Palpitations Respiratory : No Cough, No Sputum, No Wheezing Gastrointestinal : + Nausea, No Vomiting, No Diarrhea, No Constipation, No abdominal Pain, No Hematochezia, No Melena Genitourinary : No Dysuria, No Urinary Frequency, No Hematuria, Musculoskeletal : No joint pain, No Myalgias, No Joint Swelling Skin : No Skin Lesions, No rash Neuro : No Weakness, No Numbness, No Dizziness, No Headache Psych : No Anxiety/Panic, No Depression All other systems reviewed and are negative Yes all other systems are reviewed and are negative [facility] Past Medical History Attestation statement: The following information was validated with the patient. Source: old records reviewed and nursing notes reviewed Medical History Adjustment disorder, unspecified Back pain BMI 37.0-37.9, adult BMI 38.0-38.9,adult Morbid obesity Obesity Vitamin D deficiency Surgical History History of tonsillectomy Family History Family History Mother Lung cancer Father No problems noted. Daughter No problems noted. Daughter No problems noted. Social History Social History Are you a primary director of career services to a significant other at home: No Do you presently have visiting nurse or other home services: No Alcohol intake: current Alcohol intake frequency: a few times a week Patient Tobacco Use Status: Former Tobacco user Advance Directives: No Advance Directives Information Provided: No service: No Current occupational status: employed Physical Exam Vital Signs: Vital Signs: Last Vital Signs Temp 98.3 F 04/28/21 09:38 Pulse 80 04/28/21 09:38 Resp 16 04/28/21 09:38 BP 126/75 04/28/21 09:38 Pulse Ox 100 04/28/21 09:38 BMI result Body Mass Index 36.0 VSS Appearance: Alert.? Oriented X3.? No acute distress.? Head: Normocephalic, atraumatic, no step-offs or deformities Neck: Normal inspection.? Neck supple.? CVS: Normal heart rate and rhythm.? Pulses normal.? Respiratory: No respiratory distress.? Breath sounds normal.? Abdomen: Soft and nontender.?Normoactive bowel sounds Skin: Skin warm and dry.? Normal skin color.? Normal skin turgor.?Incision sites clean dry and intact free of signs of infection. Extremities: No lower extremity edema.? No calf ttp. 5/5 strength to bilateral upper and lower extremities Back: No midline tenderness, no C-spine tenderness, full range of motion, no CVA tenderness bilaterally Neuro: Oriented X 3.? No motor deficit.? No sensory deficit. Course Reevaluation(s) Reevaluation #1: Patient's laboratory studies do not show an elevated white blood cell count, no anemia no acute electrolyte abnormalities. Patient is COVID negative. Negative test. At this time pending CT of the abdomen and pelvis, and upper GI with Gastrografin. Time: 12:32 Reevaluation #2: Patient tolerating 30 cc/15 min of water Patient is feeling well, able to tolerate small amounts of fluids. Wallace Roche has examined patient at the bedside, and agrees that patient is safe for discharge home. Patient will follow up on an outpatient basis. Comfortable with discharge home. Time: 15:42 Medical Decision Making MDM Narrative Medical decision making narrative: Frank Is a 45-year-old female past medical history significant for liver fibrosis, morbid obesity status post laparoscopic sleeve gastrectomy on April 24, 2021 here at [facility]. Patient reported lethargy, nausea, and decreased p.o. intake to her surgeon, and was advised to return turn to the emergency department for further evaluation. Upon physical examination vital signs are stable lungs are clear, regular rate and rhythm, abdomen soft nontender nondistended with normoactive bowel sounds. Laparoscopic incision sites clean, dry, and intact with dressings at each site. No evidence signs of infection. No focal neuro deficits. Normal strength upper and lower extremities. Moist mucous membranes. Normal capillary refill. Per orders of Wallace AMADO I have ordered CBC, CMP, magnesium, Protonix, folic acid, thiamine, D5 lactated Ringer's, CT of the abdomen and pelvis with IV contrast. Medical Records Medical records reviewed: Yes I reviewed the patient's medical records. Lab Data Lab results reviewed: Yes I reviewed the patient's lab results. Result diagrams: 04/28/21 11:00 04/28/21 11:00 Labs: Lab Results 04/28/21 04/28/21 04/28/21 Range/Units 10:54 11:00 11:00 WBC 8.5 (4.8-10.8) X10*3/uL RBC 5.47 (4.20-5.50) X10*6/uL Hgb 14.8 (12.0-16.0) g/dl Hct 45.9 (37.0-47.0) % MCV 83.9 (80.0-98.0) fL MCH 27.1 (27.0-33.0) pg MCHC 32.2 (31.0-35.0) g/dl RDW 12.2 (11.0-16.0) % Plt Count 329 (160-400) X10*3/uL MPV 9.3 L (9.4-12.3) fL Immature Gran % (Auto) 0.4 (0.0-0.4) % Neut % (Auto) 71.7 (45-73) % Lymph % (Auto) 17.0 L (20-40) % [place] % (Auto) 10.0 (2-11) % Eos % (Auto) 0.5 (0-4) % Baso % (Auto) 0.4 (0-2) % Lymph # (Auto) 1.4 (1.2-4.9) X10*3/uL [place] # (Auto) 0.9 (0.1-1.2) X10*3/uL Eos # (Auto) 0.0 (0.0-0.4) X10*3/uL Baso # (Auto) 0.0 (0.0-0.2) X10*3/uL Abs Immat Gran (auto) 0.03 (0.00-0.03) X10*3/uL Absolute Neuts (auto) 6.1 (2.0-8.3) x10*3/uL Absolute Nucleated RBC 0.000 (0.0-0.012) X10*3/uL Nucleated RBC % (auto) 0.0 (0.0-0.2) /100WBC Sodium 138 (135-145) mmol/L Potassium 3.3 D (3.3-5.1) mmol/L Chloride 100 (96-108) mmol/L Carbon Dioxide 26 (22-29) mmol/L Anion Gap 15 (12-20) BUN 12 D (9-16) mg/dL Creatinine 0.84 (0.5-1.4) mg/dL Estim Creat Clear Calc 113.3 Estimated GFR > 60 Random Glucose 95 (60-115) mg/dL Calcium 9.6 (8.4-10.2) mg/dL Magnesium 2.2 (1.6-2.6) mg/dL Total Bilirubin 0.5 (0.0-1.0) mg/dL AST 14 (5-31) U/L ALT 12 (0-31) U/L Alkaline Phosphatase 51 (39-117) U/L Total Protein 7.1 (6.5-8.0) g/dL Albumin 4.3 (3.5-5.0) g/dL Urine Test NEGATIVE (NEGATIVE) COVID-19 ([facility]) (Negative) COVID-19 Clin Com 04/28/21 Range/Units 11:00 WBC (4.8-10.8) X10*3/uL RBC (4.20-5.50) X10*6/uL Hgb (12.0-16.0) g/dl Hct (37.0-47.0) % MCV (80.0-98.0) fL MCH (27.0-33.0) pg MCHC (31.0-35.0) g/dl RDW (11.0-16.0) % Plt Count (160-400) X10*3/uL MPV (9.4-12.3) fL Immature Gran % (Auto) (0.0-0.4) % Neut % (Auto) (45-73) % Lymph % (Auto) (20-40) % [place] % (Auto) (2-11) % Eos % (Auto) (0-4) % Baso % (Auto) (0-2) % Lymph # (Auto) (1.2-4.9) X10*3/uL [place] # (Auto) (0.1-1.2) X10*3/uL Eos # (Auto) (0.0-0.4) X10*3/uL Baso # (Auto) (0.0-0.2) X10*3/uL Abs Immat Gran (auto) (0.00-0.03) X10*3/uL Absolute Neuts (auto) (2.0-8.3) x10*3/uL Absolute Nucleated RBC (0.0-0.012) X10*3/uL Nucleated RBC % (auto) (0.0-0.2) /100WBC Sodium (135-145) mmol/L Potassium (3.3-5.1) mmol/L Chloride (96-108) mmol/L Carbon Dioxide (22-29) mmol/L Anion Gap (12-20) BUN (9-16) mg/dL Creatinine (0.5-1.4) mg/dL Estim Creat Clear Calc Estimated GFR Random Glucose (60-115) mg/dL Calcium (8.4-10.2) mg/dL Magnesium (1.6-2.6) mg/dL Total Bilirubin (0.0-1.0) mg/dL AST (5-31) U/L ALT (0-31) U/L Alkaline Phosphatase (39-117) U/L Total Protein (6.5-8.0) g/dL Albumin (3.5-5.0) g/dL Urine Test (NEGATIVE) COVID-19 ([facility]INA) Negative (Negative) COVID-19 Clin Com See Note Imaging Data Gastrografin: Attestation: I personally reviewed and interpreted this imaging study as follows: Radiologist's impression: FINDINGS: Following oral administration of diluted Gastrografin there is normal perfusion of bolus from the oral cavity through the small stomach following gastric emptying surgery into this duodenum and jejunum without any extravasation. There is no? obstruction. No gastroesophageal reflux seen. There is no evidence of hiatal hernia. FL/FL upper GI w gastrografin IMPRESSION: Widely patent gastroesophageal junction with post gastric sleeve surgical changes.? CT scan - abdomen: Attestation: I personally reviewed and interpreted this imaging study as follows: Radiologist's impression: CT/CT abdomen pelvis w con IMPRESSION: Postsurgical gastric bypass changes with no fluid collection, free air or abscess seen. ? Normal appendix. The bowel gas pattern is nonspecific. ? Small hiatal hernia. Critical Care Time Critical Care Time Critical Care Time: No Total Critical Care Time: 36 Attestation: I attest to this time spent taking care of the patient reviewing labs, images, talking to specialist, reviewing previous visits. Discharge Plan Discharge Clinical Impression: S/P laparoscopic sleeve gastrectomy, Hiatal hernia, Nausea & vomiting Patient Disposition: Home, Self-Care Instructions: Hiatal Hernia (ED), Acute Nausea and Vomiting (ED) Additional Instructions: Take your medications as prescribed. Follow-up with your primary care provider this week. Follow up with Dr. Dia Return to the emergency department with new or worsening symptoms. In case of emergency call 911 Prescriptions: No Action pantoprazole 40 mg tablet,delayed release (DR/EC) 40 mg PO DAILY Qty: 30 RF: 2 ondansetron HCl [Zofran] 4 mg tablet 4 mg PO Q12H Qty: 20 RF: 0 sucralfate 1 gram tablet 1 g PO BID Qty: 60 RF: 2 Referrals: Stacie Tong MD [Primary Care Provider] - 2 days Brent Gutierrez MD [Physician] - 3 days Stand Alone Forms: Work/School Release
[2021-04-28 11:05] LABS: MANUAL DIFF FLAG NO
[2021-04-28] MEDS: Dextrose 5 % and Lactated Ring 1,000 ML 150 ML IVCONT (11:07)
[2021-04-28] MEDS: Thiamine HCL 100 MG in 0.9 % Sodium Chloride 100 ML 202 MG IV (11:07)
[2021-04-28 11:08] LABS: Basophils Percent Auto 0.4 % (0-2); Eosinophils Percent Auto 0.5 % (0-4); Hematocrit 45.9 % (37.0-47.0); Hemoglobin 14.8 g/dl (12.0-16.0); Imm Gran Abs Auto 0.03 X10*3/uL (0.00-0.03); Imm Gran Pct Auto 0.4 % (0.0-0.4); Lymphocytes Absolute Auto 1.4 X10*3/uL (1.2-4.9); Mean Corpuscular HGB Conc 32.2 g/dl (31.0-35.0); Mean Corpuscular Hemoglobin 27.1 pg (27.0-33.0); Mean Corpuscular Volume 83.9 fL (80.0-98.0); Mean Platelet Volume 9.3 fL (9.4-12.3); Monocytes Absolute Auto 0.9 X10*3/uL (0.1-1.2); Neutrophils Absolute Auto 6.1 x10*3/uL (2.0-8.3); Neutrophils Percent Auto 71.7 % (45-73); Platelet Count 329 X10*3/uL (160-400); Red Blood Count 5.47 X10*6/uL (4.20-5.50); Red Cell Distribution Width 12.2 % (11.0-16.0); White Blood Count 8.5 X10*3/uL (4.8-10.8)
[2021-04-28] MEDS: Pantoprazole Sodium 40 MG/10 ML VIAL IVPUSH (11:10)
[2021-04-28 11:11] LABS: Urine Pregnancy NEGATIVE (NEGATIVE)
[2021-04-28 11:12] LABS: UPreg QC Valid YES
[2021-04-28 11:23] LABS: COVID-19 Test Negative (Negative)
[2021-04-28 11:24] LABS: Alanine Aminotransferase 12 U/L (0-31); Albumin Level 4.3 g/dL (3.5-5.0); Alkaline Phosphatase 51 U/L (39-117); Anion Gap 15 (12-20); Aspartate Amino Transferase 14 U/L (5-31); Bilirubin Total 0.5 mg/dL (0.0-1.0); Blood Urea Nitrogen 12 mg/dL (9-16); Calcium 9.6 mg/dL (8.4-10.2); Carbon Dioxide 26 mmol/L (22-29); Chloride 100 mmol/L (96-108); Creatinine Clr Calc Pharmacy 113.3; Estimated Glomerular Filt Rate > 60; Glucose Random 95 mg/dL (60-115); Magnesium 2.2 mg/dL (1.6-2.6); Potassium 3.3 mmol/L (3.3-5.1); Sodium 138 mmol/L (135-145); Total Protein 7.1 g/dL (6.5-8.0)
[2021-04-28] MEDS: Folic Acid 1 MG in 0.9 % Sodium Chloride 50 ML 100.4 MG IV (12:21)
[2021-04-28] MEDS: Diatrizoate Meglumine, Sodium 120 ML SOLUTION PO (13:07)
[2021-04-28] MEDS: iohexoL 350 MG/ML 100 ML INFUS..BTL 85 ML IV (14:18)
[2021-04-28] MEDS: bisacodyL 5 MG TABLET.DR 10 MG PO (15:58)
[2021-04-28] MEDS: Potassium Chloride/H20 10 MEQ/100 ML PIGGYBACK 100 MEQ IV (16:00)
[2021-04-28] MEDS: Cyanocobalamin (Vitamin B-12) 1,000 MCG/ML VIAL 1000 MCG IM (17:04)
== END 2021-04-28 18:39 | disposition home or self-care (01) ==
PROVIDERS: Physician Assistant; Emergency Provider Emergency Medicine; PCP Pediatrics
DX: R11.2 Nausea with vomiting, unspecified (principal); K44.9 Diaphragmatic hernia without obstruction or gangrene; Z98.84 Bariatric surgery status; Z20.822 Contact with and (suspected) exposure to COVID-19
CPT/HCPCS: 36415; 74177; 74240; 80053; 81025; 83735; 85025; 87635; 96365; 96366; 96367; 96372; 96375; 99283; 99291; J3411; Q9967

== ENCOUNTER → 2021-04-30 08:01 | Outpatient (BNVA) | payer BC, SELFPAY | PROVIDERS: PCP Pediatrics; Referring Provider Pediatrics; Visit Provider Surgery ==

== ENCOUNTER → 2021-05-30 08:23 | Outpatient (BNVA) | payer BC, SELFPAY | PROVIDERS: PCP Pediatrics; Visit Provider Physician Assistant ==

== ENCOUNTER → 2021-07-09 08:05 | Outpatient (BNVA) | payer BC, SELFPAY | PROVIDERS: PCP Pediatrics; Visit Provider Physician Assistant ==

== ENCOUNTER 2022-04-13 09:28 | Outpatient (REF) | payer BC, SELFPAY ==
[2022-04-13 09:53] LABS: MANUAL DIFF FLAG NO
[2022-04-13 10:58] LABS: Basophils Percent Auto 0.6 % (0-2); Eosinophils Percent Auto 0.6 % (0-4); Hematocrit 43.5 % (37.0-47.0); Hemoglobin 13.7 g/dl (12.0-16.0); Imm Gran Abs Auto 0.01 X10*3/uL (0.00-0.03); Imm Gran Pct Auto 0.2 % (0.0-0.4); Lymphocytes Absolute Auto 1.3 X10*3/uL (1.2-4.9); Lymphocytes Percent Auto 27.3 % (20-40); Mean Corpuscular HGB Conc 31.5 g/dl (31.0-35.0); Mean Corpuscular Hemoglobin 27.6 pg (27.0-33.0); Mean Corpuscular Volume 87.5 fL (80.0-98.0); Mean Platelet Volume 9.6 fL (9.4-12.3); Monocytes Absolute Auto 0.3 X10*3/uL (0.1-1.2); Monocytes Percent Auto 6.6 % (2-11); Neutrophils Absolute Auto 3.1 x10*3/uL (2.0-8.3); Neutrophils Percent Auto 64.7 % (45-73); Platelet Count 310 X10*3/uL (160-400); Red Blood Count 4.97 X10*6/uL (4.20-5.50); Red Cell Distribution Width 11.9 % (11.0-16.0); White Blood Count 4.8 X10*3/uL (4.8-10.8)
[2022-04-13 11:15] LABS: Estimated Average Glucose 111 mg/dL; Hemoglobin A1c % 5.5 %
[2022-04-13 11:56] LABS: Alanine Aminotransferase 11 U/L (0-31); Albumin Level 4.5 g/dL (3.5-5.0); Alkaline Phosphatase 52 U/L (39-117); Anion Gap 13 (12-20); Aspartate Amino Transferase 15 U/L (5-31); Bilirubin Total 0.4 mg/dL (0.0-1.0); Blood Urea Nitrogen 8 mg/dL (9-16); C Reactive Protein 0.06 mg/dL (< or = 0.50); Calcium 9.6 mg/dL (8.4-10.2); Carbon Dioxide 28 mmol/L (22-29); Chloride 105 mmol/L (96-108); Cholesterol 200 mg/dL; Estimated Glomerular Filt Rate > 60; Glucose Random 82 mg/dL (60-115); HDL Cholesterol 76 mg/dL; Iron 98 mcg/dL (30-160); LDL Cholesterol Calculated 115 mg/dl; Percent Iron Saturation 33 % (15-50); Potassium 4.5 mmol/L (3.3-5.1); Sodium 141 mmol/L (135-145); Total Iron Binding Capacity 294 mcg/dL (228-428); Total Protein 7.2 g/dL (6.5-8.0); Triglycerides 49 mg/dL; Unsaturated Iron Binding 196 ug/dL
[2022-04-13 12:08] LABS: Ferritin 48 ng/mL (10-250); Insulin 3 uU/mL (2-29); TSH reflex Free T4 1.17 uIU/mL (0.32-4.0); Vitamin D 25-OH Total 38.5 ng/mL (>30)
[2022-04-13 12:51] LABS: Folate 15.9 ng/mL (> or = 4.0); Vitamin B12 717 pg/mL (200-900)
[2022-04-15 12:22] LABS: Calcium (PTHI) 9.5 mg/dL (8.6-10.2); PTHI 59 pg/mL (16-77)
[2022-04-16 15:42] LABS: Zinc 91 mcg/dL (60-130)
[2022-04-17 19:19] LABS: Vitamin A 41 mcg/dL (38-98)
[2022-04-18 14:28] LABS: Vitamin B1 11 nmol/L (8-30)
== END 2022-04-13 09:29 | disposition home or self-care (01) ==
LOC: HO.LAB 09:28
PROVIDERS: PCP Pediatrics; Visit Provider Physician Assistant Surgical
DX: Z98.84 Bariatric surgery status (principal)
CPT/HCPCS: 36415; 80053; 80061; 82306; 82607; 82728; 82746; 83036; 83525; 83540; 83970; 84425; 84443; 84590; 84630; 85025; 86140

== ENCOUNTER 2024-03-14 11:43 | Outpatient (AMB) | payer BC, SELFPAY ==
--- NOTE | 2024-03-14 11:35 | MHC.OFFVISWM ---
VS Expanded 03/14/24 11:38 Height 5 ft 9 in Weight 205 lb BMI 30.3 Intake Visit Reasons: (TV) PO LSG 04/24/21 Allergies No Known Allergies Allergy (Verified 04/03/22 14:39) Medication List - Last Reconciled 03/14/24 by ANEUDY Solares cholecalciferol (vitamin D3) 25 mcg PO DAILY docusate sodium (Colace) 100 mg PO DAILY iron,carbonyl-vitamin C 65 mg iron- 125 mg (Vitron-C) 1 tab PO BEDTIME HPI Comments Details: This?is a?48?yo female who is s/p LSG 04/24/2021. Presents for 1 year 11 month post op visit. Weight at last visit on 04/03/2022 was 190 pounds with a BMI of 28, weight today is 205 pounds, representing a 15 pound weight gain with a BMI today of 3.3.? No complaints of nausea, emesis, abdominal pain or reflux, or constipation. Restarted high protein meal plan this month after experiencing some life stress. Present meal plan includes: Taking 2 Celebrate 4:1 shakes with 2 scoops each for breakfast and lunch Zone bar Dinner of protein/veg Exercise routine includes: 3 mile walk, occasional running on treadmill Did the patient ever have any of these conditions and are they resolved or still being treated? GERD: n/a SHERRY: n/a DM: n/a HTN: n/a Hyperlipidemia: n/a Post op complications: went to ER a few days after discharge with lethargy; dehydrated, possible reaction to anesthesia [facility] Medical History (Updated 04/03/22 @ 14:47 by ANEUDY Solares) BMI 37.0-37.9, adult BMI 38.0-38.9,adult Obesity Vitamin D deficiency Adjustment disorder, unspecified Back pain Morbid obesity Surgical History History of sleeve gastrectomy History of tonsillectomy Family History Mother Lung cancer Father No problems noted. Daughter No problems noted. Daughter No problems noted. Social History (Updated 04/03/22 @ 14:39 by SHAHRIAR Cuevas) Are you a primary resident care supervisor to a significant other at home: No Do you presently have visiting nurse or other home services: No Alcohol intake: current Alcohol intake frequency: holidays/special occasions only Patient Tobacco Use Status: Former Tobacco user service: No Current occupational status: employed Telehealth Telehealth Telehealth Platform: Telephone Location of provider rendering services: other Location of patient: address on file Patient Identification confirmed using: Name, : Yes Telehealth method: voice only Patient verbally consented to treatment: Yes Patient verbally consented to billing insurance company: Yes Patient informed of any privacy concerns related to visit: Yes Minutes spent on Phone/Video with Pt.: 14 Assessment & Plan Assessment & Plan (1) Obesity: Code(s): E66.9 - Obesity, unspecified Category: Medical (2) S/P laparoscopic sleeve gastrectomy: Code(s): Z98.84 - Bariatric surgery status Category: Surgical Plan Pt is back on track with high protein meal plan, exercise regimen. Her personal goal is 195lbs. Labs ordered. RTC 1 year, provided my # for any questions between visits. I spent a total of 30 minutes reviewing/updating records, examining the patient and counseling the patient on weight management as detailed above. Orders: Orders Insulin Today E66.9 - Obesity, unspecified, Z98.84 - Bariatric surgery status Hemoglobin A1c Today E66.9 - Obesity, unspecified, Z98.84 - Bariatric surgery status Complete Blood Count Auto Diff Today E66.9 - Obesity, unspecified, Z98.84 - Bariatric surgery status IRON PROFILE Today E66.9 - Obesity, unspecified, Z98.84 - Bariatric surgery status Zinc Today E66.9 - Obesity, unspecified, Z98.84 - Bariatric surgery status Vitamin D 25-OH Total Today E66.9 - Obesity, unspecified, Z98.84 - Bariatric surgery status Lipid Panel Today E66.9 - Obesity, unspecified, Z98.84 - Bariatric surgery status Comprehensive Met. Panel Today E66.9 - Obesity, unspecified, Z98.84 - Bariatric surgery status Vitamin B12 and Folate Today E66.9 - Obesity, unspecified, Z98.84 - Bariatric surgery status C Reactive Protein Today E66.9 - Obesity, unspecified, Z98.84 - Bariatric surgery status Vitamin B1 Today E66.9 - Obesity, unspecified, Z98.84 - Bariatric surgery status Vitamin A Today E66.9 - Obesity, unspecified, Z98.84 - Bariatric surgery status TSH reflex Free T4 Today E66.9 - Obesity, unspecified, Z98.84 - Bariatric surgery status Ferritin Today E66.9 - Obesity, unspecified, Z98.84 - Bariatric surgery status
[2024-03-14 11:38] VITALS: BMI 30.3
== END 2024-03-14 11:51 | disposition home or self-care (01) ==
LOC: HO.HBS 11:43
PROVIDERS: PCP Pediatrics; Visit Provider Physician Assistant Surgical
DX: E66.9 Obesity, unspecified (principal); Z98.84 Bariatric surgery status
CPT/HCPCS: 99214

== ENCOUNTER → 2024-03-14 11:43 | Outpatient (BNVA) | payer BC, SELFPAY | PROVIDERS: PCP Pediatrics; Visit Provider Physician Assistant Surgical | DX: E66.9 Obesity, unspecified (principal); Z98.84 Bariatric surgery status ==